=== PATIENT | female | born 1965 | race Caucasian/White ===

== ENCOUNTER → 2017-06-15 | Outpatient (CLI) | payer OTHER ==
[~2017-06-15] MED LIST: LIDOCAINE 1%, 20ML ONE; LIDOCAINE 1%-EPI 1:100K, 30ML ONE; SODIUM BICARBONATE 4.2%, 5ML ONE
== END | disposition home or self-care (01) ==
LOC: CFH 08:55
PROVIDERS: ATTEND Physician Assistant
DX: N63 Unspecified lump in breast (principal); N60.01 Solitary cyst of right breast; N60.02 Solitary cyst of left breast; L08.89 Other specified local infections of the skin and subcutaneous tissue; C44.91 Basal cell carcinoma of skin, unspecified; C43.9 Malignant melanoma of skin, unspecified; E78.5 Hyperlipidemia, unspecified
CPT/HCPCS: 19083; 76642; 88305; G0204; J3490